=== PATIENT | male | born 1990 | race Native Hawaiian/Other Pacific Islander ===

== ENCOUNTER 2021-11-06 01:52 | Emergency (ER) | payer BC ==
[~2021-11-06] VITALS: Ht 175.3 cm; Wt 137.0 kg
[2021-11-06 02:01] VITALS: BP 104/58
--- NOTE | 2021-11-06 02:16 | NUR ---
PATIENT IS IN THE LOBBY
--- NOTE | 2021-11-06 03:01 | NUR ---
PT W/C ASSISTED TO BED 07.
[2021-11-06] MEDS ORDERED: ONDANSETRON 4 MG/2 ML VIAL IVP ONE (03:10)
[2021-11-06] MEDS ORDERED: DICYCLOMINE HCL LIQUID 20 MG, ALUMINUM HYD/MAG/SIMETHICONE 30 ML, LIDOCAINE VISCOUS 2% ... PO ONE ×3 (03:10)
[2021-11-06] MEDS ORDERED: MORPHINE SULFATE 4 MG/ML SYR IVP ONE ×2 (03:10→04:30)
[2021-11-06] MEDS ORDERED: NACL 0.9% 1,000 ML IV ONE ×2 (03:10→04:00)
[2021-11-06] MEDS ORDERED: DICYCLOMINE HCL LIQUID 10 MG/5 ML UDC ONE (03:14)
[2021-11-06] MEDS ORDERED: ALUMINUM HYD/MAG/SIMETHICONE 30 ML UDC ONE (03:14)
[2021-11-06 03:15] LABS: ALBUMIN 3.4 g/dL (3.4-5.0); CREATININE 0.7 mg/dL (0.6-1.3); POTASSIUM 3.6 mmol/L (3.5-5.1); TOTAL BILIRUBIN 0.7 mg/dL (0.0-1.0)
[2021-11-06 03:45] LABS: ANION GAP 30.2 (8-16)
[2021-11-06 03:48] LABS: CARBON DIOXIDE 7.4 mmol/L (21-32)
--- NOTE | 2021-11-06 04:25 | NUR ---
Ultrasound at bedside.
--- NOTE | 2021-11-06 05:00 | NUR ---
30 y/o m biba with c/o of acute onset of n/v x 30 min. pt denies f/d/ough chest pain is in mid upper gastric. SKIN IS PINK/WARM/DRY; AAOX4 WITH EVEN AND STEADY GAIT; LUNGS CLEAR BL; HR EVEN AND REGULAR; PT DENIES ANY FEVER, CP, SOB, OR COUGH AT THIS TIME; PATIENT STATES PAIN OF 10/10 AT THIS TIME; VSS; PATIENT POSITIONED FOR COMFORT; HOB ELEVATED; BEDRAILS UP X2; BED DOWN. ER MD MADE AWARE OF PT STATUS.
[2021-11-06 05:15] LABS: BASOPHILS # (AUTO) 0.1 K/uL (0.00-0.22); BASOPHILS % (AUTO) 0.7 % (0.0-2.0); EOSINOPHILS # (AUTO) 0.1 K/uL (0-0.4); EOSINOPHILS % (AUTO) 0.6 % (0.0-4.0); HEMATOCRIT 46.3 % (36-52); HEMOGLOBIN 16.2 g/dL (12.0-18.0); LYMPHOCYTES # (AUTO) 2.1 K/uL (2.0-11.5); LYMPHOCYTES % (AUTO) 13.4 % (20.5-51.1); MEAN CORPUSCULAR HEMOGLOBIN 30 pg (27-31); MEAN CORPUSCULAR HGB CONC 35 g/dL (33-37); MEAN CORPUSCULAR VOLUME 85.7 fL (80-94); MONOCYTES % (AUTO) 6.6 % (1.7-9.3); NEUTROPHILS # (AUTO) 12.6 K/uL (1.8-7.7); NEUTROPHILS % (AUTO) 78.7 % (42.2-75.2); PLATELET COUNT (AUTO) 261 K/uL (140-450); RED CELL DISTRIBUTION WIDTH 14.2 % (11.6-13.7)
--- NOTE | 2021-11-06 07:37 | NUR ---
PT TAKEN TO CT
--- NOTE | 2021-11-06 07:40 | NUR ---
REPORT RECEIVED FROM SEGUNDO ESTRADA. ASSUMED CARE AT THIS TIME
--- NOTE | 2021-11-06 07:40 | NUR ---
Pt report given to yovana wetzel. Transfer of care at this time.
--- NOTE | 2021-11-06 07:55 | NUR ---
PT [place] BACK FROM CT VIA [facility]
--- NOTE | 2021-11-06 07:57 | NUR ---
[facility] AT BEDSIDE FOR TRANSPORT
[2021-11-06 08:30] VITALS: BP 133/66
--- NOTE | 2021-11-06 08:30 | NUR ---
Patient to be transferred to [facility]. Is being transferred due to ACUTE PANCREATITIS. Receiving facility has accepting physician and available space. ER physician has signed transfer form. Patient or responsible republican has agreed to transfer and signed form. Patient belongings inventoried and will be sent with patient. Copy of nursing notes, lab reports, EKG, Physicians Orders and X-rays to be sent with patient. Report called to NURSE RN at receiving facility. [facility] ambulance service has been called for transfer. ETA is 10MIN .
--- NOTE | 2021-11-06 08:30 | NUR ---
Jocelyn hough in [facility] - 11/06/21 at 0848 by [facility] PT [place] BERT CHO
--- NOTE | 2021-11-06 08:51 | NUR ---
Chart checked and completed. The patient's care was reviewed and supervised by Amanda Collins RN.
== END 2021-11-06 08:30 | disposition short-term general hospital (02) ==
LOC: MED 01:52
DX: K85.90 Acute pancreatitis without necrosis or infection, unspecified (principal); Z20.822 Contact with and (suspected) exposure to COVID-19; I10 Essential (primary) hypertension
CPT/HCPCS: 36415; 36600; 74176; 76705; 80053; 82803; 83690; 85025; 87426; 96361; 96374; 96375; 96376; 99285; J2270; J2405; Q0092; J7030